=== PATIENT | female | born 1985 | race American Indian/Alaskan Native ===

== ENCOUNTER 2019-12-28 21:42 | Emergency (ER) | payer MEDICAID, OTHER ==
[2019-12-28 21:58] VITALS: BP 111/82
[2019-12-28 22:41] LABS: Basophils % (Auto) 0.6 % (0.0-1.8); Eosinophils # (Auto) 0.1 K/mm3 (0.0-0.4); Hematocrit 42.1 % (30.3-42.9); Lymphocytes # (Auto) 1.8 K/mm3 (1.2-5.4); Lymphocytes % (Auto) 31.8 % (13.4-35.0); Mean Corpuscular HGB Conc 33 % (30-34); Mean Corpuscular Volume 86 fl (79-97); Monocytes # (Auto) 0.4 K/mm3 (0.0-0.8); Monocytes % (Auto) 7.4 % (0.0-7.3); Platelet Count 209 K/mm3 (140-440); Red Blood Count 4.92 M/mm3 (3.65-5.03)
[2019-12-28 22:53] LABS: Bilirubin,Urine NEG (Negative); Blood,Urine NEG (Negative); Color,Urine Yellow (Yellow); Mucus,Urine 1+ /HPF; Protein,Urine <15 mg/dL mg/dL (Negative); Urobilinogen,Urine < 2.0 mg/dL (<2.0)
[2019-12-28 22:56] LABS: Alanine Aminotransferase 24 units/L (7-56); Albumin 4.3 g/dL (3.9-5); BUN/Creatinine Ratio 12; Blood Urea Nitrogen 11 mg/dL (7-17); Calcium 9.1 mg/dL (8.4-10.2); Hemolysis Index 12
[2019-12-29] MEDS ORDERED: ONDANSETRON 4 MG/2 ML INJ IV ONE (00:13)
[2019-12-29] MEDS ORDERED: MORPHINE 4 MG/1 ML INJ IV ONE (00:13)
--- NOTE | 2019-12-29 02:22 | Cat Scan Report ---
CT ABDOMEN AND PELVIS WITH CONTRAST INDICATION: Abdominal pain. TECHNIQUE: Axial CT images were obtained through the abdomen and pelvis after 100 cc IV contrast. All CT scans at this location are performed using CT dose reduction for ALARA by means of automated exposure contr ol. COMPARISON: None available. FINDINGS: LOWER CHEST: No significant abnormality. LIVER: No significant abnormality. GALLBLADDER: No significant abnormality. BILE DUCTS: No significant abnormality. PANCREAS: No significant abnormality. SPLEEN: No significant abnormality. ADRENALS: No significant abnormality. RIGHT KIDNEY and URETER: No significant abnormality. LEFT KIDNEY and URETER: No significant abnormality. STOMACH and SMALL BOWEL: No significant abnormality. COLON: No significant abnormality. APPENDIX: No significant abnormality. PERITONEUM: No free fluid. No free air. No fluid collection. 2. No acute inflammatory process or bowel obstruction LYMPH NODES: No significant adenopathy. AORTA and ARTERIES: No significant abnormality. IVC and VEINS: No significant abnormality. URINARY BLADDER: No significant abnormality. REPRODUCTIVE ORGANS: Markedly enlarged leiomyomatous uterus with largest uterine leiomyoma measuring 9.5 entire uterus measures 15.0 x 13.7 x 14.1 cm in AP by transverse by craniocaudal dimensions and c ontains IUD. ADDITIONAL FINDINGS: None. SKELETAL SYSTEM: No significant abnormality. IMPRESSION: 1. Markedly enlarged leiomyomatous uterus. Signer Name: Shemar Myers MD Signed: 12/29/2019 2:18 AM Workstation Name: [id number]
--- NOTE | 2019-12-29 03:02 | Emergency Department Report ---
ED Abdominal Pain HPI - General Chief Complaint: Abdominal Pain Stated Complaint: ABDOMINAL PAIN Source: patient Mode of arrival: Ambulatory Limitations: No Limitations - History of Present Illness Initial Comments: Patient is a A0 34-year-old -Malaysian female with a history of chronic uterine fibroid who presents to the ED with complaint of acute onset persistent severe diffuse low abdominal pain for the last 3 days. Patient states that the pain is worse with movement, physical exercises or palpation of the lower abdomen. Patient also states that the pain radiates to the rectum with the pressure sensation. Patient denies dizziness, fever, chills, nausea, vomiting, diarrhea, vaginal bleeding, vaginal discharge, dysuria, urinary frequency and urgency, traumatic injury, shortness of breath or chest pain and dyspareunia or low back pain. MD Complaint: abdominal pain -: Sudden, days(s) (3) Location: suprapubic Radiation: suprapubic, other (RECTUM) Severity: severe Severity scale (0 -10): 7 Quality: aching, fullness, sharp Consistency: constant Improves With: rest Worsens With: bowel movement, movement Context: other (Chronic uterine fibroids) Associated Symptoms: denies other symptoms. denies: nausea, vomiting, diarrhea, chills, constipation, dysuria, hematemesis, hematochezia, melena, hematuria, syncope - Related Data Previous Rx's Medication Instructions Recorded Last Taken Type Ferrous Sulfate [Feosol 325 MG tab] 325 mg PO TID #90 tablet 02/15/15 Unknown Rx HYDROcodone/APAP 5-325 [[place] 1 each PO Q6H PRN #20 tablet 02/15/15 Unknown Rx 5-325 mg TAB] Ibuprofen [Motrin 800 MG tab] 800 mg PO Q8HR PRN #90 tablet 02/15/15 Unknown Rx Ibuprofen [Motrin] 600 mg PO Q8H PRN #30 tablet 12/29/19 Unknown Rx traMADoL [Ultram] 50 mg PO Q6HR PRN #12 tablet 12/29/19 Unknown Rx Allergies Allergy/AdvReac Type Severity Reaction Status Date / Time No Known Allergies Allergy Unverified 02/15/15 07:51 ED Review of Systems ROS: Stated complaint: ABDOMINAL PAIN Other details as noted in HPI Constitutional: denies: chills, fever Eyes: denies: eye pain, eye discharge, vision change ENT: denies: ear pain, throat pain Respiratory: denies: cough, shortness of breath, wheezing Cardiovascular: denies: chest pain, palpitations Endocrine: no symptoms reported Gastrointestinal: abdominal pain. denies: nausea, vomiting, diarrhea, constipation Genitourinary: denies: urgency, dysuria, frequency, hematuria, discharge, a bnormal menses, dyspareunia Musculoskeletal: denies: back pain, joint swelling, arthralgia Skin: denies: rash, lesions Neurological: denies: headache, weakness, paresthesias Psychiatric: denies: anxiety, depression Hematological/Lymphatic: denies: easy bleeding, easy bruising ED Past Medical Hx - Past Medical History Previous Medical History?: No Hx Hypertension: No Hx Congestive Heart Failure: No Hx Diabetes: No Hx Asthma: No Hx COPD: No Hx HIV: No - Surgical History Past Surgical History?: Yes Additional Surgical History: Uterine fibroid - Social History Smoking Status: Former Smoker Substance Use Type: Alcohol - Medications Home Medications: Home Medications Medication Instructions Recorded Confirmed Last Taken Type Ferrous Sulfate [Feosol 325 MG tab] 325 mg PO TID #90 tablet 02/15/15 Unknown Rx HYDROcodone/APAP 5-325 [[place] 1 each PO Q6H PRN #20 tablet 02/15/15 Unknown Rx 5-325 mg TAB] Ibuprofen [Motrin 800 MG tab] 800 mg PO Q8HR PRN #90 tablet 02/15/15 Unknown Rx Ibuprofen [Motrin] 600 mg PO Q8H PRN #30 tablet 12/29/19 Unknown Rx traMADoL [Ultram] 50 mg PO Q6HR PRN #12 tablet 12/29/19 Unknown Rx ED Physical Exam - General Limitations: No Limitations General appearance: alert, in no apparent distress - Head Head exam: Present: atraumatic, normocephalic, normal inspection - Eye Eye exam: Present: normal appearance, PERRL, EOMI Pupils: Present: normal accommodation - ENT ENT exam: Present: normal exam, normal orophraynx, mucous membranes moist, TM's normal bilaterally, normal external ear exam - Neck Neck exam: Present: normal inspection, full ROM - Respiratory Respiratory exam: Present: normal lung sounds bilaterally. Absent: respiratory distress, wheezes, rales, stridor, chest wall tenderness, accessory muscle use - Cardiovascular Cardiovascular Exam: Present: regular rate, normal rhythm, normal heart sounds. Absent: systolic murmur, diastolic murmur, rubs, gallop - GI/Abdominal GI/Abdominal exam: Present: soft, tenderness (Palpable diffuse lower abdominal tenderness, with a palpable rigid tender suprapubic mass), rigid, normal bowel sounds. Absent: guarding, rebound, hyperactive bowel sounds, hypoactive bowel sounds, organomegaly - Bi-manual exam: Present: other (pelvic exam deferred) - Extremities Exam Extremities exam: Present: normal inspection, full ROM, normal capillary refill - Back Exam Back exam: Present: normal inspection, full ROM. Absent: tenderness, CVA tenderness (R), CVA tenderness (L), muscle spasm, paraspinal tenderness, vertebral tenderness - Neurological Exam Neurological exam: Present: alert, oriented X3, CN II-XII intact, normal gait, reflexes normal - Psychiatric Psychiatric exam: Present: normal affect, normal mood - Skin Skin exam: Present: warm, dry, intact, normal color. Absent: rash ED Course Vital Signs 12/28/19 21:57 Temperature 99.4 F Pulse Rate 61 Respiratory 18 Rate Blood Pressure 111/82 O2 Sat by Pulse 98 Oximetry ED Medical Decision Making - Lab Data Result diagrams: 12/28/19 22:22 12/28/19 22:22 - Radiology Data Radiology results: report reviewed, [place] [address] Cat Scan Report Signed Patient: JAYLENE LEDEZMA MR#: [id number] : 1985 Acct:[id number] Age/Sex: 34 / F ADM Date: 12/28/19 Loc: ED Attending Dr: Ordering Physician: OSWALDO BURCIAGA Date of Service: 12/29/19 Procedure(s): CT abdomen pelvis w con Accession Number(s): [id number] cc: OSWALDO BURCIAGA CT ABDOMEN AND PELVIS WITH CONTRAST INDICATION: Abdominal pain. TECHNIQUE: Axial CT images were obtained through the abdomen and pelvis after 100 cc IV contrast. All CT scans at this location are performed using CT dose reduction for ALARA by means of automated exposure control. COMPARISON: None available. FINDINGS: LOWER CHEST: No significant abnormality. LIVER: No significant abnormality. GALLBLADDER: No significant abnormality. BILE DUCTS: No significant abnormality. PANCREAS: No significant abnormality. SPLEEN: No significant abnormality. ADRENALS: No significant abnormality. RIGHT KIDNEY and URETER: No significant abnormality. LEFT KIDNEY and URETER: No significant abnormality. STOMACH and SMALL BOWEL: No significant abnormality. COLON: No significant abnormality. APPENDIX: No significant abnormality. PERITONEUM: No free fluid. No free air. No fluid collection. 2. No acute inflammatory process or bowel obstruction LYMPH NODES: No significant adenopathy. AORTA and ARTERIES: No significant abnormality. IVC and VEINS: No significant abnormality. URINARY BLADDER: No significant abnormality. REPRODUCTIVE ORGANS: Markedly enlarged leiomyomatous uterus with largest uterine leiomyoma measuring 9.5 entire uterus measures 15.0 x 13.7 x 14.1 cm in AP by transverse by craniocaudal dimensions and contains IUD. ADDITIONAL FINDINGS: None. SKELETAL SYSTEM: No significant abnormality. IMPRESSION: 1. Markedly enlarged leiomyomatous uterus. Signer Name: Shemar Myers MD Signed: 12/29/2019 2:18 AM Workstation Name: [id number] Transcribed By: TL Dictated By: Shemar Myers MD Electronically Authenticated By: Shemar Myers MD Signed Date/Time: 12/29/19217 DD/ 4 TD/TT: - Medical Decision Making This is a A0 34-year-old -Malaysian female with a history of chronic uterine fibroid who presents to the ED with complaint of acute onset persistent severe diffuse low abdominal pain for the last 3 days. Patient states that the pain is worse with movement, physical exercises or palpation of the lower abdomen. Patient also states that the pain radiates to the rectum with the pressure sensation. In the ED, patient is alert and oriented x3 and is not in distress. Patient was treated for pain in the ED and lab test results were reviewed and are all nonactionable. On reevaluation, patient's pain is well controlled with medications. The abdomen pelvis CT scan with contrast showed a markedly enlarged leiomyomatous uterus with largest uterine leiomyoma measuring 9.5 entire uterus measures 15.0 x 13.7 x 14.1 cm in AP by transverse by craniocaudal dimensions and contains IUD. On reevaluation, patient's pain is well controlled with medications. Patient will discharge home on pain medicati ons and advised to follow-up with TELEGRAPH INSPECTOR physician in 5 to 7 days for reevaluation. Patient was advised to return to the ED immediately if symptoms get worse. - Differential Diagnosis Appendicitis; Ovarian cyst; Fibroids; UTI; Diverticulitis; Critical care attestation.: If time is entered above; I have spent that time in minutes in the direct care of this critically ill patient, excluding procedure time. ED Disposition Clinical Impression: Uterine fibroid Qualifiers: Uterine leiomyoma location: unspecified location Qualified Code(s): D25.9 - Leiomyoma of uterus, unspecified Abdominal pain Qualifiers: Abdominal location: lower abdomen, unspecified Qualified Code(s): R10.30 - Lower abdominal pain, unspecified Disposition: TO HOME OR SELFCARE Is pt being admited?: No Does the pt Need Aspirin: No Condition: Stable Instructions: Abdominal Pain (ED), Uterine Fibroids (ED) Additional Instructions: Take medication with food, drink plenty of fluids and follow-up with your TELEGRAPH INSPECTOR physician in 5 to 7 days for reevaluation. Return to the ED immediately if symptoms get worse. Prescriptions: Ibuprofen [Motrin] 600 mg PO Q8H PRN #30 tablet PRN Reason: Pain traMADoL [Ultram] 50 mg PO Q6HR PRN #12 tablet PRN Reason: Pain Referrals: JOSEFINA PLASENCIA MD [Staff Physician] - 3-5 Days Time of Disposition: 03:11 Print Language: VINCENTIAN
== END 2019-12-29 03:45 | disposition home or self-care (01) ==
LOC: ED 21:42
DX: D25.9 Leiomyoma of uterus, unspecified (principal); R10.30 Lower abdominal pain, unspecified; R10.2 Pelvic and perineal pain; K62.89 Other specified diseases of anus and rectum; Z87.891 Personal history of nicotine dependence; Z79.1 Long term (current) use of non-steroidal anti-inflammatories (NSAID); Z79.899 Other long term (current) drug therapy
CPT/HCPCS: 36415; 74177; 80053; 81001; 84703; 85025; 96374; 96375; 99284; J2270; J2405; Q9967

== ENCOUNTER 2020-03-17 07:05 | Day surgery (SDC) | payer MEDICAID ==
--- NOTE | 2020-03-12 14:09 | History and Physical Report ---
History of Present Illness History of present illness: 34 yo G 1 P 1 with lost IUD string. Unable to be removed (Mirena) in the office. U/S confirms IUD is intrauterine. PT as a result will present on 03/17 for a hysteroscopic IUD removal. 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 Social history: no significant social history - Obstetrical History : 1 Para: 1 Medications and Allergies Allergies Allergy/AdvReac Type Severity Reaction Status Date / Time No Known Allergies Allergy Unverified 03/11/20 16:48 Home Medications Medication Instructions Recorded Confirmed Last Taken Type Multivit with Calcium,Iron,Min 1 each PO DAILY 03/11/20 03/11/20 Unknown History [One Daily Women's] Review of Systems All systems: negative (except HPI) - Vital Signs Vital signs: see RN charting - Physical Exam Cardiovascular: Regular rate, No murmurs Lungs: Positive: Clear to auscultation, Normal air movement Results All other labs normal. Assessment and Plan PT will be presenting for hysteroscopic IUD removal on 03/17. PT fully consented. - Patient Problems (1) IUD strings lost Status: Acute
[~2020-03-17 07:05] MED LIST: LACTATED RINGERS 1,000 ML IV SCH; MIDAZOLAM 2 MG/2 ML INJ IV NR
[2020-03-17] MEDS ORDERED: KETOROLAC 30 MG/1 ML INJ IV PRN (07:44)
[2020-03-17] MEDS ORDERED: fentaNYL 100 MCG/2 ML INJ IV PRN (07:44)
[2020-03-17] MEDS ORDERED: ONDANSETRON 4 MG/2 ML INJ IV PRN (07:44)
--- NOTE | 2020-03-17 07:44 | Anesthesia Day of Surgery ---
Anesthesia Day of Surgery - Day of Surgery Patient Examined: Yes Patient H&P Reviewed: Yes Patient is NPO: Yes
--- NOTE | 2020-03-17 07:44 | Anesthesia Consultation ---
Anesthesia Consult and Med Hx Date of service: 03/17/20 - Airway Anesthetic Teeth Evaluation: Good (braces) ROM Head & Neck: Adequate Mental/Hyoid Distance: Adequate Mallampati Class: Class I Intubation Access Assessment: Good - Pulmonary Exam CTA: Yes - Cardiac Exam Cardiac Exam: RRR - Pre-Operative Health Status ASA Pre-Surgery Classification: ASA1 Proposed Anesthetic Plan: General - Pulmonary Hx Smoking: No Hx Respiratory Symptoms: No - Cardiovascular System Hx Hypertension: No Hx Heart Attack/AMI: No Hx Percutaneous Transluminal Coronary Angioplasty (PTCA): No Hx Cardia Arrhythmia: No - Central Nervous System CVA: No - Gastrointestinal Hx Gastroesophageal Reflux Disease: No - Endocrine Hx Renal Disease: No Hx Liver Disease: No Hx Insulin Dependent Diabetes: No Hx Non-Insulin Dependent Diabetes: No Hx Thyroid Disease: No - Other Systems Hx Obesity: No - Additional Comments Anesthesia Medical History Comments: No hx anesthetic complications.
[2020-03-17] MEDS ORDERED: MIDAZOLAM 2 MG/2 ML INJ IV NR (08:00)
[2020-03-17] MEDS ORDERED: propofoL 200 MG/20 ML VIAL IV ONE (08:18)
[2020-03-17] MEDS ORDERED: LIDOCAINE MPF (2%) 20 MG/1 ML VIAL 5 ML ONE (08:18)
[2020-03-17] MEDS ORDERED: HYDROmorphone 1 MG/1 ML INJ ONE (08:18)
[2020-03-17] MEDS ORDERED: SODIUM CHLORIDE 0.9% IRR 1,500 ML BOTTLE IR ONE (10:00)
[2020-03-17] MEDS ORDERED: ONDANSETRON 4 MG/2 ML INJ ONE (10:18)
[2020-03-17] MEDS ORDERED: KETOROLAC 30 MG/1 ML INJ ONE (10:18)
--- NOTE | 2020-03-17 10:21 | Post Operative Note ---
Date of procedure: 03/17/20 Pre-op diagnosis: lost IUD string Post-op diagnosis: same Findings: Patient with a very anteverted uterus. Upon removal of the Mirena IUD, the IUD string was noted to be vertical and wrapped around 1 of the arms of the IUD. Procedure: Procedure: Hysteroscopic IUD removal Anterior lip of the cervix was grasped with a single-tooth tenaculum. Cervix was dilated with Gardner dilation with the hysteroscope. This was done carefully and eventually the IUD was visualized. Hysteroscopic grasper was used to grasp the base of the IUD itself. The string could not be visualized hysteroscopically. The IUD was able to be removed in its entirety. Single- tooth tenaculum removed and the procedure was concluded. Patient tolerated the procedure well. All instrument lap counts were correct. Patient taken recovery in stable condition. Anesthesia: GETA Surgeon: NI JIMENEZ Estimated blood loss: none Pathology: none Condition: stable Disposition: PACU
--- NOTE | 2020-03-17 10:22 | Short Stay Summary ---
Short Stay Documentation Date of service: 03/17/20 Narrative H&P: Patient here for scheduled hysteroscopic IUD removal. IUD was removed successfully. No complications. Return office in 4 weeks. Please see operative report and H&P for details. - History H&P: dictated Social history: no significant social history - Allergies and Medications Current Medications: Allergies No Known Allergies Allergy (Unverified 03/11/20 16:48) Home Medications Medication Instructions Recorded Confirmed Last Taken Type Multivit with Calcium,Iron,Min 1 each PO DAILY 03/11/20 03/17/20 03/10/20 08:00 History [One Daily Women's] Active Medications Fentanyl (Sublimaze) 50 mcg IV Q5MIN PRN PRN Reason: Pain , Severe (7-10) Stop: 03/17/20 23:00 Lactated Ringer's (Lactated Ringers) 1,000 mls @ 100 mls/hr IV DIRECT MING Stop: 03/17/20 23:59 Last Admin: 03/17/20 08:10 Dose: 100 mls/hr Documented by: Ketorolac Tromethamine (Toradol) 30 mg IV ONCE PRN PRN Reason: Pain, Moderate (4-6) Stop: 03/17/20 20:00 Midazolam HCl (Versed) 2 mg IV PREOP NR Stop: 03/17/20 23:59 Last Admin: 03/17/20 09:19 Dose: 2 mg Documented by: Ondansetron HCl (Zofran) 4 mg IV ONCE PRN PRN Reason: Nausea And Vomiting Stop: 03/17/20 20:00 - Disposition Condition at discharge: Stable Disposition: DC-01 TO HOME OR SELFCARE - Discharge Diagnoses (1) IUD strings lost Status: Acute Short Stay Discharge Plan Follow up with: AIDAN SOARES MD [Primary Care Provider] - 04/16/20
[2020-03-17 11:20] VITALS: BP 117/69
--- NOTE | 2020-03-17 12:22 | Post Anesthesia Evaluation ---
- Post Anesthesia Evaluation Patient Participated: Yes Airway Patent: Yes Stable Respiratory Function: Yes Nausea/Vomiting: No Temp > 96.8F: Yes Pain Manageable: Yes Adequeate Hydration: Yes Anesthesia Complications: No
== END 2020-03-17 07:06 | disposition home or self-care (01) ==
LOC: OR 07:05
PROVIDERS: ATTEND Obstetrics & Gynecology
DX: T83.32XA Displacement of intrauterine contraceptive device, initial encounter (principal); D64.9 Anemia, unspecified; K21.9 Gastro-esophageal reflux disease without esophagitis; Z72.89 Other problems related to lifestyle; Z98.890 Other specified postprocedural states; Z79.899 Other long term (current) drug therapy; Z83.3 Family history of diabetes mellitus; Z82.49 Family history of ischemic heart disease and other diseases of the circulatory system; Y83.8 Other surgical procedures as the cause of abnormal reaction of the patient, or of later complication, without mention of misadventure at the time of the procedure; Y92.89 Other specified places as the place of occurrence of the external cause
CPT/HCPCS: 58562; 81025; J1170; J1885; J2250; J2405; J2704; J7120

== ENCOUNTER 2020-10-29 22:53 | Emergency (ER) | payer MEDICAID ==
[2020-10-30 01:19] VITALS: BP 116/72
== END 2020-10-30 01:15 | disposition home or self-care (01) ==
LOC: ED 22:53
DX: R60.0 Localized edema (principal); E86.0 Dehydration; N39.0 Urinary tract infection, site not specified; K21.9 Gastro-esophageal reflux disease without esophagitis; Z79.899 Other long term (current) drug therapy
CPT/HCPCS: 36415; 80053; 81001; 84703; 85025; 99283

== ENCOUNTER 2021-02-10 22:41 | Emergency (ER) | payer MEDICAID ==
[2021-02-11 04:45] LABS: Basophils % (Auto) 0.2 % (0.0-1.8); Eosinophils # (Auto) 0.1 K/mm3 (0.0-0.4); Eosinophils % (Auto) 0.8 % (0.0-4.3); Hematocrit 39.4 % (30.3-42.9); Lymphocytes # (Auto) 1.3 K/mm3 (1.2-5.4); Lymphocytes % (Auto) 19.7 % (13.4-35.0); Mean Corpuscular HGB Conc 33 % (30-34); Mean Corpuscular Volume 85 fl (79-97); Monocytes # (Auto) 0.5 K/mm3 (0.0-0.8); Monocytes % (Auto) 7.9 % (0.0-7.3); Platelet Count 230 K/mm3 (140-440); Red Blood Count 4.64 M/mm3 (3.65-5.03); Red Cell Distribution Width 13.8 % (13.2-15.2)
[2021-02-11 05:01] LABS: Alanine Aminotransferase 57 units/L (7-56); Blood Urea Nitrogen 15 mg/dL (7-17); Hemolysis Index 1
[2021-02-11 05:02] LABS: BUN/Creatinine Ratio 21
--- NOTE | 2021-02-11 06:44 | Emergency Department Report ---
ED General Adult HPI - General Chief complaint: High BP Stated complaint: HIGH BP HIGH HEART RATE HEADACHE Time Seen by Provider: 02/11/21 03:30 Source: patient Mode of arrival: Ambulatory Limitations: No Limitations - History of Present Illness Initial comments: 35-year-old female presents emergency department complaining of possible normal adverse reaction to medication of unknown etiology and also pain to her right hip which he states have evaluated. 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 States she has become with recently cycled off and had a surgical procedure done and when she restarted taking the medication she began to feel nauseous, headaches, and had of unknown funny feeling.. Subsequently the injection site the right hip she noticed some swelling and hardness that was had not been there previously no warmth, discharge, redness so she want that evaluated as well. She reports no fevers or sweats at current feels that her overall symptoms have improved since the onset about 5-6 5 days ago but the injection site is still quite painful Quality: dull Worsens with: none - Related Data Home Medications Medication Instructions Recorded Confirmed Last Taken Multivit with Calcium,Iron,Min 1 each PO DAILY 03/11/20 03/17/20 03/10/20 08:00 [One Daily Women's] Previous Rx's Medication Instructions Recorded Last Taken Type Azithromycin [Zithromax Tri-Kodak] 500 mg PO DAILY 3 Days #3 tablet 10/30/20 Unknown Rx Fluconazole [Diflucan TAB] 100 mg PO QDAY #1 tablet 10/30/20 Unknown Rx Allergies Allergy/AdvReac Type Severity Reaction Status Date / Time No Known Allergies Allergy Unverified 03/11/20 16:48 ED Review of Systems ROS: Stated complaint: HIGH BP HIGH HEART RATE HEADACHE Other details as noted in HPI Comment: All other systems reviewed and negative ED Past Medical Hx - Past Medical History Previous Medical History?: Yes Hx Hypertension: No Hx Heart Attack/AMI: No Hx Congestive Heart Failure: No Hx Diabetes: No Hx GERD: Yes Hx Liver Disease: No Hx Renal Disease: No Hx HIV: No - Surgical History Past Surgical History?: Yes Additional Surgical History: Uterine fibroid - Social History Smoking Status: Never Smoker Substance Use Type: None - Medications Home Medications: Home Medications Medication Instructions Recorded Confirmed Last Taken Type Multivit with Calcium,Iron,Min 1 each PO DAILY 03/11/20 03/17/20 03/10/20 08:00 History [One Daily Women's] Azithromycin [Zithromax Tri-Kodak] 500 mg PO DAILY 3 Days #3 tablet 10/30/20 Unknown Rx Fluconazole [Diflucan TAB] 100 mg PO QDAY #1 tablet 10/30/20 Unknown Rx ED Physical Exam - General Limitations: No Limitations General appearance: alert, in no apparent distress - Head Head exam: Present: atraumatic, normocephalic - Eye Eye exam: Present: normal appearance, PERRL, EOMI Pupils: Present: normal accommodation - ENT ENT exam: Present: normal exam, mucous membranes moist - Neck Neck exam: Present: normal inspection, full ROM - Respiratory Respiratory exam: Present: normal lung sounds bilaterally. Absent: respiratory distress, wheezes, rales, chest wall tenderness, accessory muscle use, decreased breath sounds - Cardiovascular Cardiovascular Exam: Present: regular rate, normal rhythm. Absent: systolic murmur, diastolic murmur, rubs, gallop - GI/Abdominal GI/Abdominal exam: Present: soft, normal bowel sounds - Extremities Exam Extremities exam: Present: normal inspection, tenderness (To the right hip hard hematoma at the injection site. No lymphangitis no significant cellulitis. No discharge) - Back Exam Back exam: Present: normal inspection - Neurological Exam Neurological exam: Present: alert, oriented X3 - Psychiatric Psychiatric exam: Present: normal affect, normal mood - Skin Skin exam: Present: warm, dry, intact, normal color. Absent: rash ED Course Vital Signs 02/11/21 02:11 Temperature 98.7 F Pulse Rate 70 Respiratory 18 Rate Blood Pressure 146/107 O2 Sat by Pulse 100 Oximetry ED Medical Decision Making - Lab Data Result diagrams: 02/11/21 04:19 02/11/21 04:19 Critical care attestation.: If time is entered above; I have spent that time in minutes in the direct care of this critically ill patient, excluding procedure time. ED Disposition Clinical Impression: Hematoma of injection site, Adverse drug reaction Disposition: 01 HOME / SELF CARE / HOMELESS Is pt being admited?: No Does the pt Need Aspirin: No Condition: Stable Instructions: Serotonin Syndrome, Chronic Drug Toxicity, Post-Injection Inflammatory Reaction Additional Instructions: Please pay close attention when [id number] PVDs to ensure that she did not need a blood vessel which may cause an increase absorption of the medication leading to serotonin adjustments Referrals: [facility] [Provider Group] - 3-5 Days PRIMARY CARE, [Primary Care Provider] - 3-5 Days
[2021-02-11 06:49] VITALS: BP 122/75
== END 2021-02-11 06:47 | disposition home or self-care (01) ==
LOC: ED 22:41
DX: S70.01XA Contusion of right hip, initial encounter (principal); T14.8XXA Other injury of unspecified body region, initial encounter; T50.905A Adverse effect of unspecified drugs, medicaments and biological substances, initial encounter; K21.9 Gastro-esophageal reflux disease without esophagitis; Y92.89 Other specified places as the place of occurrence of the external cause; X58.XXXA Exposure to other specified factors, initial encounter; Y93.89 Activity, other specified; Y99.8 Other external cause status
CPT/HCPCS: 36415; 80053; 85025; 99283